=== PATIENT | female | born 1930 | race Caucasian/White ===

== ENCOUNTER → 2019-03-27 | Outpatient (CLI) | payer MEDICARE ==
[~2019-03-27] MED LIST: ALLO100T PO; AMLO5TAB9 PO; ASPI-555 PO; CYAN50008 PO; METO-391 PO; MV-M1TAB20 PO; TERA2CAP4 PO
== END | disposition home or self-care (01) ==
LOC: LAB 13:40
PROVIDERS: ATTEND Internal Medicine Gastroenterology
DX: K52.89 Other specified noninfective gastroenteritis and colitis (principal)
CPT/HCPCS: 36415; 82656

== ENCOUNTER 2019-04-04 08:08 | Day surgery (SDC) | payer MEDICARE ==
[~2019-04-04] VITALS: Ht 154.9 cm; Wt 78.0 kg
[~2019-04-04 08:08] MED LIST changes: +SODIUM CHLORIDE 0.9% 1000ML 1,000 ML IV ONE
[2019-04-04 09:20] VITALS: BP 175/66
[2019-04-04] MEDS ORDERED: PROPOFOL 10 MG/ML 20ML VIAL IV ONE (11:00)
[2019-04-04 11:13] VITALS: BP 138/53
[2019-04-04 11:19] VITALS: BP 157/60
[2019-04-04 11:26] VITALS: BP_SYST 60
[2019-04-04 11:30] VITALS: BP 159/65
[2019-04-04 11:35] VITALS: BP 154/68
== END 2019-04-04 11:44 | disposition home or self-care (01) ==
LOC: DAH 08:08 → ENDO 08:08
PROVIDERS: ATTEND Internal Medicine Gastroenterology
DX: K52.89 Other specified noninfective gastroenteritis and colitis (principal); K62.1 Rectal polyp; I12.9 Hypertensive chronic kidney disease with stage 1 through stage 4 chronic kidney disease, or unspecified chronic kidney disease; N18.3 Chronic kidney disease, stage 3 (moderate); E66.09 Other obesity due to excess calories; Z98.0 Intestinal bypass and anastomosis status; Z85.3 Personal history of malignant neoplasm of breast; Z90.49 Acquired absence of other specified parts of digestive tract; Z90.710 Acquired absence of both cervix and uterus; Z90.89 Acquired absence of other organs; Z98.890 Other specified postprocedural states; Z79.82 Long term (current) use of aspirin; Z79.899 Other long term (current) drug therapy; Z68.32 Body mass index [BMI] 32.0-32.9, adult
CPT/HCPCS: 45380; 88305; A4215; A4221; A4222; A4223; A4606; A4615; A4663; J2704; J7030